=== PATIENT | male | born 1940 | race Caucasian/White ===

== ENCOUNTER 2017-01-20 06:21 | Inpatient (IN) ==
[2017-01-16 16:10] LABS: Blood Urea Nitrogen 10 mg/dl (8-23)
[2017-01-16 16:27] LABS: Basophils # (Auto) 0.1 K/mcL (0.0-0.3); Basophils % (Auto) 1.2 % (0.0-2.0); Eosinophils # (Auto) 0.6 K/mcL (0.0-0.7); Eosinophils % (Auto) 8.6 % (0.0-7.0); Granulocytes % (Auto) 60.8 % (38.0-78.0); Lymphocytes # (Auto) 1.6 K/mcL (1.5-4.8); Lymphocytes % (Auto) 22.5 % (15.5-49.0); Mean Cell Volume 91.7 fL (80.0-100.0); Mean Corpuscular HGB Conc 34.2 g/dL (31.0-36.0); Mean Corpuscular Hemoglobin 31.4 pg (26.0-34.0); Monocytes # (Auto) 0.5 K/mcL (0.1-0.9); Monocytes % (Auto) 6.9 % (1.0-12.0); Platelet Count 237 K/mcL (140-440); RBC 5.25 M/mcL (4.50-5.90); Red Cell Distribution Width 12.7 % (11.5-14.5)
[2017-01-16 16:43] LABS: Appearance,Urine CLEAR; Bacteria,Urine 0 /hpf (0); Bilirubin,Urine NEG (NEG); Color,Urine YELLOW; Glucose,Urine (UA) NEGATIVE (NEG); Leukocyte Esterase,Urine 75 /uL (NEG); Mucus,Urine FEW /hpf (0); Nitrate,Urine NEG (NEG); Protein,Urine NEG (NEG); Specific Gravity,Urine 1.017 (1.000-1.035); Urine Blood NEG mg/dL (<0.03); Urine RBC 1 /hpf (0-1); Urine Squamous Epithelial Cell 0 /hpf (0-4); Urine WBC 5 /hpf (0-4); Urobilinogen,Urine NEG (NEG)
[~2017-01-20 06:21] MED LIST: ACETAMINOPHEN 500 MG TABLET PO SCH; CELECOXIB 200 MG CAPSULE PO SCH; PREGABALIN 75 MG CAPSULE PO SCH; ceFAZolin 1 GM VIAL IV SCH; oxyCODONE 10 MG TAB.ER.12H PO SCH
[2017-01-20 08:12] LABS: Appearance,Urine CLEAR; Bacteria,Urine 0 /hpf (0); Bilirubin,Urine NEG (NEG); Color,Urine YELLOW; Glucose,Urine (UA) NEGATIVE (NEG); Leukocyte Esterase,Urine 25 /uL (NEG); Mucus,Urine FEW /hpf (0); Nitrate,Urine NEG (NEG); Protein,Urine NEG (NEG); Specific Gravity,Urine 1.009 (1.000-1.035); Urine Blood 0.03 mg/dL (<0.03); Urine RBC < 1 /hpf (0-1); Urine Squamous Epithelial Cell 0 /hpf (0-4); Urine WBC 5 /hpf (0-4); Urobilinogen,Urine NEG (NEG)
[2017-01-20] MEDS ORDERED: ONDANSETRON 4 MG/2 ML VIAL IV ONE (09:35)
[2017-01-20] MEDS ORDERED: GLYCOPYRROLATE 0.2 MG/ML VIAL IV ONE (09:35)
[2017-01-20] MEDS ORDERED: KETAMINE 100 MG/ML ML IV ONE (09:35)
[2017-01-20] MEDS ORDERED: HETASTARCH 6% 500 ML BAG IV ONE (09:35)
[2017-01-20] MEDS ORDERED: TRANEXAMIC ACID 1,000 MG/10 ML VIAL IV ONE (09:35)
[2017-01-20] MEDS ORDERED: DEXAMETHASONE 10 MG/ML VIAL IV ONE (09:35)
[2017-01-20] MEDS ORDERED: ePHEDrine 50 MG/ML AMPUL IV ONE (09:35)
[2017-01-20] MEDS ORDERED: PROPOFOL 200 MG/20 ML VIAL IV ONE (09:35)
[2017-01-20] MEDS ORDERED: MIDAZOLAM 2 MG/2 ML VIAL IV ONE (09:35)
[2017-01-20] MEDS ORDERED: PHENYLEPHRINE 10 MG/ML VIAL IV ONE (09:35)
[2017-01-20] MEDS ORDERED: LIDOCAINE HCL/PF 100 MG/5 ML SYRINGE IV ONE (09:35)
[2017-01-20] MEDS ORDERED: GENTAMICIN SULFATE 800 MG/20 ML VIAL IR ONE (10:00)
[2017-01-20] MEDS ORDERED: FLUMAZENIL 0.1 MG/ML ML IV PRN (10:47)
[2017-01-20] MEDS ORDERED: HYDROmorphone 2 MG/ML SYRINGE IV PRN ×2 (10:47→11:10)
[2017-01-20] MEDS ORDERED: IPRATROPIUM/ALBUTEROL 3 ML AMPUL.NEB NEB PRN (10:47)
[2017-01-20] MEDS ORDERED: LACTATED RINGERS 250 ML IV PRN (10:47)
[2017-01-20] MEDS ORDERED: MEPERIDINE 25 MG/ML SYRINGE IV PRN (10:47)
[2017-01-20] MEDS ORDERED: ONDANSETRON 4 MG/2 ML VIAL IV PRN ×2 (10:47→11:10)
[2017-01-20] MEDS ORDERED: diphenhydrAMINE 50 MG/ML VIAL IV PRN (10:47)
[2017-01-20] MEDS ORDERED: BENZOCAINE/MENTHOL 1 LOZENGE PO PRN ×2 (10:47→11:10)
[2017-01-20] MEDS ORDERED: PROMETHAZINE 25 MG/ML VIAL IV PRN (10:47)
[2017-01-20] MEDS ORDERED: METHOCARBAMOL 1,000 MG/10 ML VIAL IV PRN (10:47)
[2017-01-20] MEDS ORDERED: NALOXONE HCL 0.4 MG/ML VIAL IV PRN (10:47)
[2017-01-20] MEDS ORDERED: MEPERIDINE 50 MG/ML SYRINGE IM PRN (10:47)
[2017-01-20] MEDS ORDERED: fentaNYL 100 MCG/2 ML VIAL IV PRN (10:47)
[2017-01-20] MEDS ORDERED: ePHEDrine 50 MG/ML AMPUL IV PRN (10:47)
[2017-01-20] MEDS ORDERED: PROMETHAZINE 25 MG/ML VIAL IM PRN (10:47)
[2017-01-20] MEDS ORDERED: LACTATED RINGERS 1,000 ML IV SCH (11:00)
--- NOTE | 2017-01-20 11:09 | Brief Operative Note ---
Date of procedure: 01/20/17 Pre-op diagnosis: right hip djd severe Post-op diagnosis: same Procedure: right anai Grafts/Implants: Yes Anesthesia: GETA Complications Description: 01/20/17 11:08 none Surgeon: Michael Monae Sustainability Coach: Senthil Alvarez Estimated blood loss (cc): 100 Tourniquet Time (Minutes): 0 Specimens Removed/Pathology: none sent Condition: stable Disposition: PACU
[2017-01-20] MEDS ORDERED: TRANEXAMIC ACID 1,000 MG/10 ML VIAL IV SCH (11:10)
[2017-01-20] MEDS ORDERED: KETOROLAC 15 MG/ML VIAL IV PRN (11:10)
[2017-01-20] MEDS ORDERED: FLEETS ADULT ENEMA PR PRN (11:10)
[2017-01-20] MEDS ORDERED: POLYETHYLENE GLYCOL 3350 17 GM PACKET PO PRN (11:10)
[2017-01-20] MEDS ORDERED: ACETAMINOPHEN 325 MG TABLET PO PRN (11:10)
[2017-01-20] MEDS ORDERED: MAGNESIUM HYDROXIDE 30 ML ORAL.SUSP PO PRN (11:10)
[2017-01-20] MEDS ORDERED: BISACODYL 10 MG SUPP.RECT PR PRN (11:10)
[2017-01-20] MEDS ORDERED: SALSALATE 750 MG PO PRN (11:19)
[2017-01-20] MEDS ORDERED: hydrOXYzine 10 MG TABLET PO PRN (11:19)
[2017-01-20] MEDS ORDERED: traMADol 50 MG TABLET PO PRN (11:19)
--- NOTE | 2017-01-20 12:16 | XRay Report ---
HISTORY: Reason for Exam:Post-op Total Hip FINDINGS: There is a well-positioned right hip prosthesis. No fracture is present and there are no abnormal soft tissue calcifications around the joint. Patient has also had prior spinal fusion using pedicle screws at L5-S1. IMPRESSION: Well-positioned right hip prosthesis Interpreted and Authenticated by: Frandy Leal 01/20/17
[2017-01-20] MEDS: 0.45 % SODIUM CHLORIDE 1,000 ML IV SCH ×2 (12:40→22:20)
--- NOTE | 2017-01-20 13:46 | Operative Note ---
DATE OF OPERATION: 01/20/2017 PREOPERATIVE DIAGNOSIS: Right hip degenerative arthritis. POSTOPERATIVE DIAGNOSIS: Right hip degenerative arthritis. PROCEDURE: Right total hip arthroplasty. SURGEON: Michael Monae MD CERTIFIED MIDWIFE: Senthil Alvarez PA-C ANESTHESIA: General LMA anesthesia. COMPLICATIONS: None. IMPLANTS: A size 13 Alpine stem ODC, a 58 cup from Jesus Alberto with a dual mobility liner. The neck length was +9. This seemed to fit very nicely and was reduced without difficulty. X-rays confirmed the leg length and position of the stem. We irrigated thoroughly and then placed the above-mentioned implants. DESCRIPTION OF PROCEDURE: The patient was brought to the operating room. We placed the patient on the bed supine and he was put to sleep with general LMA anesthesia, turned into a left lateral position with the Emeterio positioner. We sterilely prepped and draped the right lower extremity and placed Ioban over the skin and made a superior posterior approach with about a 4 inch incision. Through this, we the fibers of the gluteus marci and then exposed the posterior capsule which was released with the Bovie. We released the piriformis obturator internus and the posterior capsule. These were tagged. We then made the neck cut after dislocating the hip at about 35 mm from the center of rotation, subluxed the hip anteriorly and then reamed up the acetabulum to size 57 and implanted a 58 cup with no screws. The patient had a dual mobility liner placed. This was at 20 degrees of anteversion and 40 degrees of inclination. The femur was then prepped using broaches. We broached up to size 13 point and implanted a 13 Alpine stem with extended neck with a +9 neck length. This was very stable through the range of motion, seemed to be equal leg length. We irrigated thoroughly and then took a picture. This seemed to balance very nicely on the x-ray. The final implant was a 13 Alpine stem, extended neck with a +9 neck length with a dual mobility ball. Once this was placed, we then reduced the hip, very stable throughout the range of motion. We then checked the length on the table. We then closed the wound with StrataFix #1, 2-0 Vicryl and adhesive closure. The patient tolerated this well without complication. VICKI:[email or web address] Job ID: [id number] Doc ID: [id number] Michael Monae MD
[2017-01-20] MEDS: 0.9 % SODIUM CHLORIDE 10 ML SYRINGE IV SCH ×2 (14:04→20:50)
[2017-01-20] MEDS: GABAPENTIN 300 MG CAPSULE PO SCH ×2 (14:49→20:43)
[2017-01-20] MEDS: HYDROcodone/APAP 10/325MG TABLET PO PRN (16:47)
[2017-01-20] MEDS: ceFAZolin 1 GM VIAL IV SCH (16:48)
[2017-01-20] MEDS: ASPIRIN 325 MG ENTERIC COATED TABLET PO SCH (20:44)
[2017-01-20] MEDS: TAMSULOSIN 0.4 MG CAPSULE PO SCH (20:47)
[2017-01-20] MEDS: LISINOPRIL 5 MG TABLET PO SCH (20:47)
[2017-01-20] MEDS: ATORVASTATIN 20 MG TABLET PO SCH (20:47)
[2017-01-20] MEDS: SENNOSIDES 1 TABLET PO SCH (20:47)
[2017-01-20] MEDS: DOCUSATE SODIUM 100 MG CAPSULE PO SCH (20:47)
[2017-01-20] MEDS ORDERED: TEMAZEPAM 15 MG CAPSULE PO PRN (21:00)
[2017-01-21] MEDS: ceFAZolin 1 GM VIAL IV SCH (00:18)
--- NOTE | 2017-01-21 07:28 | Orthopedic Progress Note ---
Subjective Patient information: Note initiated : 01/21/17 at 7:27 am Service Date, if different from initiated Date: [] Patient: David Almonte 76 y/o M admitted on 01/20/17 for Right Total Hip Arthroplasty. Chief Complaint: [Pt is stable this morning on post operative day 1 without any significant concerns or complaints. Patients vital signs have remained stable. Patients dressing is dry and exhibits a grossly intact neurovascular and neuromotor exam. Patients 10 point ROS is otherwise negative. ] Objective Vital signs: Vital Signs Temp Pulse Resp BP Pulse Ox 01/21/17 04:00 98.1 F 55 L 12 130/68 96 01/21/17 00:00 97.2 F 66 12 129/74 97 01/20/17 20:00 98.0 F 77 12 111/62 96 01/20/17 15:23 98.4 F 20 146/82 97 01/20/17 15:10 98 01/20/17 14:45 147/77 98 01/20/17 13:45 145/80 99 01/20/17 13:15 151/78 100 01/20/17 13:10 100 01/20/17 12:45 95.8 F L 162/82 99 01/20/17 12:30 166/89 99 01/20/17 12:15 171/78 98 01/20/17 12:00 95.7 F L 61 15 144/79 96 01/20/17 11:45 69 13 132/71 96 01/20/17 11:30 62 15 133/72 96 01/20/17 11:16 97.7 F 58 L 8 L 140/68 97 01/20/17 08:00 100 Intake and Output 01/20/17 01/21/17 01/21/17 21:59 05:59 13:59 Intake Total 660 / 660 1767 / 1767 Output Total 952 / 952 725 / 725 Balance -292 / -292 1042 / 1042 Intake: IV 967 / 967 Sodium Chloride 0.45% 1,000 ml 967 / 967 @ 100 mls/hr IV .Q10H [facility] Rx#: [id number] Oral 300 / 300 800 / 800 GI Tube Flush 360 / 360 Output: Urine Catheter Amount 950 / 950 725 / 725 Void Amount 0 / 0 0 / 0 # of times incontinent of urine 2 / 2 Other: Meal Lunch Percent of Meal Consumed 100% Feeding Ability Independent Weight 200 lb 8 oz Intake & Output: Intake & Output 01/20/17 01/21/17 01/21/17 21:59 05:59 13:59 Intake Total 660 / 660 1767 / 1767 Output Total 952 / 952 725 / 725 Balance -292 / -292 1042 / 1042 Weight 200 lb 8 oz Intake: IV 967 / 967 Sodium Chloride 0.45% 1,000 ml 967 / 967 @ 100 mls/hr IV .Q10H [facility] Rx#: [id number] Oral 300 / 300 800 / 800 GI Tube Flush 360 / 360 Output: Urine Catheter Amount 950 / 950 725 / 725 Void Amount 0 / 0 0 / 0 # of times incontinent of urine 2 / 2 Other: Meal Lunch Percent of Meal Consumed 100% Feeding Ability Independent Incision: Yes healing Incision clean and dry: Yes Dressing: Yes clean, Yes dry Neurological exam IM: Yes motor sensory intact, Yes neurovascular intact Extremities exam IM: Yes Foot pink and warm, Yes neurovascular intact - Labs CBC & BMP: 01/21/17 04:35 01/16/17 15:06 Labs: Orthopedic Labs 01/16/17 15:06 PT 13.7 INR 1.0 APTT 30 01/21/17 01/16/17 04:35 15:06 Hgb 16.5 Hct 37.2 L 48.2 Assessment and Plan (1) Hx of total hip arthroplasty The patient has been educated regarding dressing care, Physical Therapy recommendations, home exercises, restrictions, and follow up appointments. The patient has had all necessary DME prescribed. The patient has remained stable during their hospital course. The patient was discharge with a stable exam. Status: Acute
--- NOTE | 2017-01-21 07:30 | Discharge Summary ---
Ortho Discharge - [facility] - Patient Instructions Diet: Regular Diet Activity: activity as tolerated, weight bearing as tolerated Total Hip Protocol: Follow activity instructions as provided by Physical Therapy. Dressing Care: May shower in 2 days Patient Education: Total Hip Replacement (DC) - Problem Maintenance (1) Hx of total hip arthroplasty Status: Acute - Follow Up Plan Follow Up Appointments: Senthil Alvarez PA-C [Physician Insulation Blanket Maker] - 02/04/17 1:10 pm Disposition: Home, Self-Care Prognosis: Good Rehab Potential: Good I certify that the patient requires SNF services: No Overall status at discharge: patient is progressing back to baseline - Orders For Discharge Prescriptions: Aspirin [Ecotrin] 325 mg PO BID #60 tab.ec Docusate Sodium [Colace] 100 mg PO BID #60 cap HYDROcodone/APAP 10/325MG [[place] 10/325Mg] 1 - 2 tab PO Q4HP PRN #75 tab PRN Reason: Pain
[2017-01-21] MEDS: DOCUSATE SODIUM 100 MG CAPSULE PO SCH ×2 (09:39→20:40)
[2017-01-21] MEDS: VITAMIN D3 1,000 UNIT TABLET PO SCH (09:39)
[2017-01-21] MEDS: METHOCARBAMOL 500 MG TABLET PO PRN ×2 (09:39→20:40)
[2017-01-21] MEDS: HYDROcodone/APAP 10/325MG TABLET PO PRN ×3 (09:39→20:40)
[2017-01-21] MEDS: OMEPRAZOLE 20 MG CAPSULE PO SCH (09:40)
[2017-01-21] MEDS: FINASTERIDE 5 MG TABLET PO SCH (09:40)
[2017-01-21] MEDS: ASPIRIN 325 MG ENTERIC COATED TABLET PO SCH ×2 (09:40→20:40)
[2017-01-21] MEDS: GABAPENTIN 300 MG CAPSULE PO SCH ×3 (09:40→20:40)
[2017-01-21] MEDS: LISINOPRIL 5 MG TABLET PO SCH ×2 (09:40→20:40)
[2017-01-21] MEDS: 0.9 % SODIUM CHLORIDE 10 ML SYRINGE IV SCH ×3 (10:07→21:32)
[2017-01-21] MEDS: 0.45 % SODIUM CHLORIDE 1,000 ML IV SCH ×2 (10:08→20:39)
[2017-01-21] MEDS: GEMFIBROZIL 600 MG TABLET PO SCH (10:09)
[2017-01-21] MEDS: ATORVASTATIN 20 MG TABLET PO SCH (20:40)
[2017-01-21] MEDS: TAMSULOSIN 0.4 MG CAPSULE PO SCH (21:33)
[2017-01-21] MEDS: SENNOSIDES 1 TABLET PO SCH (21:33)
[2017-01-22] MEDS: 0.45 % SODIUM CHLORIDE 1,000 ML IV SCH (04:26)
[2017-01-22] MEDS: 0.9 % SODIUM CHLORIDE 10 ML SYRINGE IV SCH (06:00)
[2017-01-22] MEDS: GABAPENTIN 300 MG CAPSULE PO SCH ×2 (06:41→10:14)
[2017-01-22] MEDS: HYDROcodone/APAP 10/325MG TABLET PO PRN (06:41)
[2017-01-22] MEDS: METHOCARBAMOL 500 MG TABLET PO PRN (06:41)
[2017-01-22] MEDS: ASPIRIN 325 MG ENTERIC COATED TABLET PO SCH (10:13)
[2017-01-22] MEDS: VITAMIN D3 1,000 UNIT TABLET PO SCH (10:14)
[2017-01-22] MEDS: DOCUSATE SODIUM 100 MG CAPSULE PO SCH (10:14)
[2017-01-22] MEDS: FINASTERIDE 5 MG TABLET PO SCH (10:14)
[2017-01-22] MEDS: LISINOPRIL 5 MG TABLET PO SCH (10:14)
[2017-01-22] MEDS: GEMFIBROZIL 600 MG TABLET PO SCH (10:14)
[2017-01-22] MEDS: OMEPRAZOLE 20 MG CAPSULE PO SCH (10:14)
== END 2017-01-22 13:35 | disposition home or self-care (01) | DRG 470 ==
LOC: MEDSUR 06:21
PROVIDERS: ADMIT Orthopaedic Surgery; ATTEND Orthopaedic Surgery